=== PATIENT | female | born 1950 | race Caucasian/White ===

== ENCOUNTER 2023-07-29 11:57 | Emergency (ER) | payer MEDICARE, BC ==
[2023-07-29] MEDS ORDERED: Bacitracin Oint 1 GM U/D Packet TOP ONE (12:19)
[2023-07-29] MEDS ORDERED: Diphtheria,Pertussis(Acell),Tetanus Vaccine 0.5 ML Syringe IM ONE (12:19)
[2023-07-29] MEDS ORDERED: Lidocaine 1% 5 ML VIAL INJECT ONE (12:19)
== END 2023-07-29 13:00 | disposition home or self-care (01) ==
LOC: JP.ED 11:57
DX: S61.412A Laceration without foreign body of left hand, initial encounter (principal); Z79.82 Long term (current) use of aspirin; Z79.899 Other long term (current) drug therapy; Z91.048 Other nonmedicinal substance allergy status; Z88.8 Allergy status to other drugs, medicaments and biological substances; W26.0XXA Contact with knife, initial encounter
CPT/HCPCS: 12002; 90471; 90715; 99282; 99282-25

== ENCOUNTER 2024-03-23 14:31 | Emergency (ER) | payer MEDICARE, BC | END 2024-03-23 15:37 | disposition home or self-care (01) | LOC: JP.ED 14:31 | DX: A69.20 Lyme disease, unspecified (principal); I10 Essential (primary) hypertension; E03.9 Hypothyroidism, unspecified; Z90.710 Acquired absence of both cervix and uterus; Z79.82 Long term (current) use of aspirin; Z79.899 Other long term (current) drug therapy; Z91.048 Other nonmedicinal substance allergy status; Z88.8 Allergy status to other drugs, medicaments and biological substances; W57.XXXA Bitten or stung by nonvenomous insect and other nonvenomous arthropods, initial encounter | CPT/HCPCS: 99282; 99283 ==

== ENCOUNTER 2025-04-13 10:59 | Emergency (ER) | payer MEDICARE, BC | END 2025-04-13 11:52 | disposition home or self-care (01) | LOC: JP.ED 10:59 | DX: L03.115 Cellulitis of right lower limb (principal); R21 Rash and other nonspecific skin eruption; I10 Essential (primary) hypertension; E03.9 Hypothyroidism, unspecified; Z91.048 Other nonmedicinal substance allergy status; Z88.8 Allergy status to other drugs, medicaments and biological substances; Z79.890 Hormone replacement therapy; Z79.82 Long term (current) use of aspirin; Z79.899 Other long term (current) drug therapy; Z86.73 Personal history of transient ischemic attack (TIA), and cerebral infarction without residual deficits; Z90.710 Acquired absence of both cervix and uterus | CPT/HCPCS: 99282 ==